=== PATIENT | male | born 1990 | race Two or more races ===

== ENCOUNTER 2022-08-19 15:11 | Emergency (ER) | payer BC ==
[~2022-08-19] VITALS: Ht 165.1 cm; Wt 99.8 kg
--- NOTE | 2022-08-19 15:30 | NUR ---
Patient AOx4 able to express his own concerns, discussed plan of care, pt verbalized agreement.
--- NOTE | 2022-08-19 15:33 | NUR ---
IV started and labds collected, sent to lab.
[2022-08-19] MEDS ORDERED: MORPHINE SULFATE INJ 4 MG/ML DISP.SYRIN ONE (15:46)
[2022-08-19 15:52] LABS: BASOPHILS # (AUTO) 0.1 K/uL (0.0-0.2); BASOPHILS % (AUTO) 0.9 % (0.0-2.0); EOSINOPHILS % (AUTO) 3.7 % (0.0-6.0); HEMATOCRIT 44 % (39-51); HEMOGLOBIN 14.8 g/dL (13.5-17.5); LYMPHOCYTES % (AUTO) 21.6 % (20.0-44.0); MEAN CORPUSCULAR HGB CONC 34 g/dl (31.0-36.0); MEAN CORPUSCULAR VOLUME 90 fL (80-96); MONOCYTES # (AUTO) 0.6 K/uL (0.1-1.30); MONOCYTES % (AUTO) 6.1 % (2.0-12.0); NEUTROPHILS # (AUTO) 6.4 K/uL (1.8-8.9); NEUTROPHILS % (AUTO) 67.7 % (43.0-81.0); PLATELET COUNT (AUTO) 375 K/uL (150-450); WHITE BLOOD COUNT (AUTO) 9.4 K/uL (4.3-11.0)
[2022-08-19] MEDS ORDERED: MORPHINE SULFATE INJ 2 MG/ML DISP.SYRIN IV ONE (16:00)
[2022-08-19] MEDS ORDERED: IV NS 0.9% 1,000 ML BAG IV ONE (16:00)
[2022-08-19] MEDS ORDERED: ONDANSETRON HCL/PF 4 MG/2 ML VIAL ONE (16:03)
[2022-08-19] MEDS ORDERED: IV NS 0.9% 250 ML IV ONE (16:03)
[2022-08-19] MEDS ORDERED: IOHEXOL-300 100 ML VIAL IV ONE (16:03)
[2022-08-19 16:13] LABS: CALCIUM, SERUM 8.7 mg/dL (8.5-10.1); CREATININE 1.2 mg/dL (0.6-1.3); POTASSIUM 4.1 mmol/L (3.5-5.1)
[2022-08-19 16:18] LABS: BILIRUBIN,DIRECT 0.1 mg/dL (0.0-0.2); BILIRUBIN,TOTAL 0.4 mg/dL (0.2-1.0); TOTAL PROTEIN, SERUM 8.3 g/dL (6.4-8.2)
[2022-08-19] MEDS ORDERED: ONDANSETRON HCL/PF - ER 4 MG/2 ML VIAL IV ONE (16:30)
[2022-08-19 17:16] LABS: BILIRUBIN,URINE NEGATIVE (NEGATIVE); COLOR,URINE YELLOW (YELLOW); LEUKOCYTE ESTERASE ,URINE NEGATIVE (NEGATIVE); NITRITE, URINE NEGATIVE (NEGATIVE); PROTEIN,URINE NEGATIVE (NEGATIVE); UGLUCOSE NEGATIVE (NEGATIVE); UROBILINOGEN,URINE 0.2 EU/dL (0.2)
[2022-08-19] MEDS ORDERED: TAMSULOSIN 0.4 MG CAP.SR.24H PO ONE (17:30)
[2022-08-19] MEDS ORDERED: KETOROLAC TROMETHAMINE INJ 30 MG/ML VIAL IV ONE (17:30)
[2022-08-19] MEDS ORDERED: TAMSULOSIN 0.4 MG CAP.SR.24H ONE (17:39)
[2022-08-19] MEDS ORDERED: KETOROLAC TROMETHAMINE 15 MG/ML VIAL ONE (17:39)
[2022-08-19] MEDS ORDERED: TAMS-12 PO (17:44)
--- NOTE | 2022-08-19 17:52 | NUR ---
Patient AOx4, discussed discharge plan, pt verbalized agreement. All safety precautions taken, IV removed, dressing CDI.
[2022-08-19 18:08] LABS: BACTERIA,URINE Few /HPF (None Seen); RBC,URINE 81-100 /HPF (0-2); SQUAMOUS EPITHELIAL CELL,UR Few /HPF (None Seen); WBC,URINE 0-2 /HPF (0-3)
[2022-08-19 18:10] VITALS: BP 129/80
== END 2022-08-19 18:11 | disposition home or self-care (01) ==
LOC: ER 15:14
DX: N20.1 Calculus of ureter (principal); R10.12 Left upper quadrant pain
CPT/HCPCS: 99285; 74177; 96374; 96375; 96361; 85025; 80048; 83690; 80076; 81001; 36415; J2270; J2405 ×2; J7030; J7050; Q9967; J1885